=== PATIENT | female | born 1965 | race Caucasian/White ===

== ENCOUNTER 2016-08-19 12:32 | Emergency (ER) | payer SELFPAY ==
[~2016-08-19] VITALS: Ht 149.9 cm; Wt 48.5 kg
[~2016-08-19 12:32] MED LIST: SEROQUEL25 MG PO
== END 2016-08-19 13:06 | disposition short-term general hospital (02) ==
LOC: ER 12:32
DX: H00.014 Hordeolum externum left upper eyelid (principal); F17.210 Nicotine dependence, cigarettes, uncomplicated